=== PATIENT | female | born 1990 | race Caucasian/White ===

== ENCOUNTER 2020-01-22 12:33 | Outpatient (CLI) | payer OTHER, SELFPAY ==
[2020-01-22 13:43] LABS: Beta HCG Quantitative 6.81 mIU/ML
[2020-01-23] MEDS: RHO(D) IMMUNE GLOBULIN 300 MCG SYRINGE IM (08:53)
== END 2020-01-22 12:34 | disposition home or self-care (01) ==
LOC: ANHLAB 12:42
PROVIDERS: PCP Nurse Practitioner Family; Visit Provider Obstetrics & Gynecology Gynecology
DX: O26.851 Spotting complicating pregnancy, first trimester (principal); O26.21 Pregnancy care for patient with recurrent pregnancy loss, first trimester
CPT/HCPCS: 36415; 84702; 85461; 86880; 86902; 90384; 96372; J2790

== ENCOUNTER 2020-07-17 19:02 | Emergency (ER) | payer OTHER, SELFPAY ==
--- NOTE | ~2020-07-17 | US_ITS ---
EXAMINATION: US OB <=14 wk fetus w TV DATE: 07/17/2020 20:42 INDICATION: Vaginal bleeding with pelvic pain TECHNIQUE: Real-time transabdominal and transvaginal obstetric ultrasound. FINDINGS: No prior studies for comparison. The uterus measures 8.2 x 5.6 x 4.8 cm. There is an intrauterine gestational sac measuring 0.98 cm co rresponding to 5 week 4 day gestation. There is a yolk sac. No pole is identified. Right ovary measures 3.4 x 3.8 x 2.6 cm and contains corpus luteal cysts, largest measuring 2.8 cm. Left ovary no t visualized. IMPRESSION: 1.: Intrauterine gestational sac containing a yolk sac and no pole. Sac measurements correspond ing to a 5 week 4 day gestation (JORDAN 03/15/2021). No pole identified, likely due to early gesta tional age. Recommend follow-up with serial quantitative beta-hCG levels and ultrasound as clinically indicated. 2: Corpus luteal cysts of the right ovary, largest measuring 2.8 cm. Reviewed, dictated and finalized at location A. OGRAPH ENLARGER IMPRESSION: 1.: Intrauterine gestational sac containing a yolk sac and no pole. Sac m easurements corresponding to a 5 week 4 day gestation (JORDAN 03/15/2021). No feta l pole identified, likely due to early gestational age. Recommend follow-up wit h serial quantitative beta-hCG levels and ultrasound as clinically indicated. 2: Corpus luteal cysts of the right ovary, largest measuring 2.8 cm.
[2020-07-17 19:04] VITALS: BP 124/70; PULSE 76; RESP 20; TEMP 36.3; O2SAT 100
--- NOTE | 2020-07-17 19:24 | ED.FEMALEGU ---
HPI - Female Genitourinary General Chief complaint: Vaginal Bleeding Stated complaint: 5 weeks preg- bleeding Time Seen by Provider: 07/17/20 19:10 History of Present Illness HPI Narrative: Patient is a 29-year-old female who presents ER with vaginal bleeding. LMP 06/09/2020. Approximately 5 weeks gestation. Her OB is Dr. Mujica. She has not yet had a dating ultrasound. Patient is a EAB 1. She is reporting some mild lower pelvic cramping. She started having bright red spotting beginning this afternoon and that is increased in amount. No lightheadedness. Blood type is AB-. Related Data Home Medications Medication Instructions Recorded Confirmed certolizumab pegol [Cimzia] See Rx Instructions .ROUTE .COMPLEX 07/17/20 07/17/20 progesterone micronized 100 mg PO DAILY 07/17/20 07/17/20 Allergies Allergy/AdvReac Type Severity Reaction Status Date / Time No Known Allergies Allergy Verified 07/17/20 19:07 Review of Systems Review of Systems: All systems reviewed & are unremarkable except as noted in HPI and below Constitutional: Constitutional: Denies chills Comments: No fevers Gastrointestinal: Gastrointestinal: Denies abdominal pain, Reports nausea and Denies vomiting Genitourinary: Genitourinary: Reports abnormal vaginal bleeding, Denies hematuria, Denies nocturia, Denies dysuria and Denies vaginal discharge PMFSH Past Medical History Medical History (Updated 07/17/20 @ 21:48 by Guero Frazier MD) Healthy female adult Surgical History Surgical History (Updated 07/17/20 @ 19:26 by Guero Frazier MD) No history of previous surgery Social History Social History (Updated 07/17/20 @ 19:26 by Guero Frazier MD) Smoking status: Never smoker Gender identity (if verbalized by the patient): Female Exam Narrative: Exam Narrative: GENERAL: Well-appearing, well-nourished, and in no acute distress. HEAD: Normocephalic, atraumatic. CHEST: Clear to auscultation. No respiratory distress. HEART: Regular rate and rhythm. Normal peripheral pulses. ABDOMEN: Soft, nontender, nondistended. : Normal external genitalia. No bleeding or discharge within the vagina. Cervix closed nontender. EXTREMITIES: Normal range of motion. No edema. SKIN: Warm, dry, no rash. NEURO: Alert and oriented x3. Course Course Emergency Course: Informed of results. Received RhoGam. Follow-up with gynecology this week. Discussed case with Dr. Larkin. Vital Signs Vital signs: Vital Signs Temperature 97.3 F L 07/17/20 19:04 Pulse Rate 76 07/17/20 19:04 Respiratory Rate 20 07/17/20 19:04 Blood Pressure 124/70 07/17/20 19:04 Pulse Oximetry 100 07/17/20 19:04 Temperature 97.3 F L 07/17/20 19:04 Pulse Rate 76 07/17/20 19:04 Respiratory Rate 20 07/17/20 19:04 Blood Pressure 124/70 07/17/20 19:04 Pulse Oximetry 100 07/17/20 19:04 MDM - Female Genitourinary Lab Data Result diagrams: 07/17/20 19:25 Labs: Lab Results 07/17/20 07/17/20 07/17/20 Range/Units 19:25 19:25 19:25 WBC 10.1 H (4.5-10.0) K/mm3 RBC 4.45 (4.2-5.4) M/mm3 Hgb 13.3 (12.0-15.0) g/dL Hct 38.8 (37.0-47.0) % MCV 87.2 (80-100) fl MCH 29.9 (26-34) pg MCHC 34.3 (32-36) g/dl RDW 12.2 (11.5-14.5) % Plt Count 199 (150-375) k/mm3 MPV 10.2 (7.4-10.4) fl Immature Gran % (Auto) 0.2 (0-0.5) % Neut % (Auto) 47.1 (45.5-73.1) % Lymph % (Auto) 43.1 (18.3-44.2) % [place] % (Auto) 6.1 (2.6-8.5) % Eos % (Auto) 3.2 (0-4.4) % Baso % (Auto) 0.3 (0.2-1.2) % Lymph # (Auto) 4.36 H (0.9-3.2) K/mm3 [place] # (Auto) 0.6 (0.1-0.6) K/mm3 Eos # (Auto) 0.3 (0-0.3) K/mm3 Baso # (Auto) 0.0 (0.0-0.1) K/mm3 Abs Immat Gran (auto) 0.02 (0.00-0.031) K/mm3 Absolute Neuts (auto) 4.8 (1.3-6.7) K/mm3 Absolute Nucleated RBC 0.0 (0.0-0.012) K/mm3 Nucleated RBC % 0.0 (0.0-0.2) % Beta HCG, Quant 7739.20 mIU/ML
[2020-07-17 19:34] LABS: Basophils Percent Auto 0.3 % (0.2-1.2); Eosinophils Absolute Auto 0.3 K/mm3 (0-0.3); Eosinophils Percent Auto 3.2 % (0-4.4); Hematocrit 38.8 % (37.0-47.0); Hemoglobin 13.3 g/dL (12.0-15.0); Immature Granulocyte Absolute 0.02 K/mm3 (0.00-0.031); Immature Granulocyte Percent A 0.2 % (0-0.5); Lymphocytes Absolute Auto 4.36 K/mm3 (0.9-3.2); Lymphocytes Percent Auto 43.1 % (18.3-44.2); Mean Corpuscular HGB Conc 34.3 g/dl (32-36); Mean Corpuscular Hemoglobin 29.9 pg (26-34); Mean Corpuscular Volume 87.2 fl (80-100); Mean Platelet Volume 10.2 fl (7.4-10.4); Monocytes Absolute Auto 0.6 K/mm3 (0.1-0.6); Monocytes Percent Auto 6.1 % (2.6-8.5); Neutrophils Absolute Auto 4.8 K/mm3 (1.3-6.7); Neutrophils Percent Auto 47.1 % (45.5-73.1); Platelet Count Result 199 k/mm3 (150-375); Red Blood Count 4.45 M/mm3 (4.2-5.4); Red Cell Distribution Width 12.2 % (11.5-14.5); White Blood Count 10.1 K/mm3 (4.5-10.0)
[2020-07-17] MEDS: RHO(D) IMMUNE GLOBULIN 300 MCG SYRINGE IM (21:20)
[2020-07-17 22:10] VITALS: BP 107/74; PULSE 73; RESP 18; O2SAT 98
== END 2020-07-17 22:12 | disposition home or self-care (01) ==
PROVIDERS: Emergency Provider Emergency Medicine
DX: O20.0 Threatened abortion (principal); O34.81 Maternal care for other abnormalities of pelvic organs, first trimester; N83.11 Corpus luteum cyst of right ovary; Z3A.01 Less than 8 weeks gestation of pregnancy
CPT/HCPCS: 36415; 76801; 76817; 84702; 85025; 85461; 90384; 96372; 99284; J2790

== ENCOUNTER 2020-07-19 17:28 | Outpatient (CLI) | payer OTHER, SELFPAY | END 2020-07-19 17:29 | disposition home or self-care (01) | LOC: ANHLAB 17:31 | PROVIDERS: Visit Provider Obstetrics & Gynecology Gynecology | DX: O20.0 Threatened abortion (principal); Z3A.00 Weeks of gestation of pregnancy not specified | CPT/HCPCS: 36415; 84702 ==

== ENCOUNTER 2020-09-07 16:43 | Outpatient (CLI) | payer OTHER, SELFPAY ==
--- NOTE | ~2020-09-07 | US_ITS ---
EXAMINATION: US OB <= 14 weeks fetus DATE: 09/07/2020 17:26 INDICATION: Spotting in . First trimester. TECHNIQUE: Real-time transabdominal pelvic ultrasound was performed. COMPARISON: Ultrasound 07/17/2020 FINDINGS: The uterus measures 13.3 x 10.1 x 9.4 cm. There is an intrauterine gestational sac. The crown rump length measures 6.9 cm, which correlates with an estimated gestational age of 13 weeks and 1 day (s) (+/-) 1 week(s) and 1 day(s). heart motion is identified measuring 152 beats per minute (bp m) by M-mode Doppler. The placenta is posterior. The right ovary measures 3.2 x 2.6 x 2.4 cm. The lef t ovary is not visualized. There is no free fluid in the pelvis. IMPRESSION: 1. Single living intrauterine gestation with estimated date of delivery of 03/14/2021. Reviewed, dictated and finalized at location A.
[2020-09-07] MEDS: RHO(D) IMMUNE GLOBULIN 300 MCG/2 ML SYRINGE IM (21:06)
== END 2020-09-07 16:44 | disposition home or self-care (01) ==
PROVIDERS: PCP Nurse Practitioner Family; Visit Provider Obstetrics & Gynecology Gynecology
DX: O36.0111 Maternal care for anti-D [Rh] antibodies, first trimester, fetus 1 (principal); O26.21 Pregnancy care for patient with recurrent pregnancy loss, first trimester; Z3A.13 13 weeks gestation of pregnancy
CPT/HCPCS: 36415; 76801; 85461; 86850; 86880; 86900; 86901; 90384; 96372; J2790

== ENCOUNTER 2021-01-09 13:45 | Observation (INO) | payer OTHER, SELFPAY ==
--- NOTE | 2021-01-09 13:45 | OBADM ---
This patient, Clary Ramirez, admitted to the OB room OB Post 116 for observation. Patient/family oriented to hospital policies and general routines including ID bracelet, bed and alarms, visiting hours, pain management, procedures, bathroom and other care routines, personal items, smoking policy, room service/diet, and visiting hours. Patient/Family are encouraged to report perceived risks to care and to ask questions if they do not understand what they are told or what they should do.
[2021-01-09 14:06] VITALS: BP 107/67; PULSE 85; RESP 20; TEMP 36.6
[2021-01-09 15:00] VITALS: BMI 28.3
--- NOTE | 2021-01-15 07:25 | PM.OBTRLD ---
OB - Triage/Final Diagnosis Visit Information Reason for evaluation: other (spotting) Comments/Additional reasons for admission: I have assessed the risk for this patient, Clary Ramirez, and determined that she would benefit from observation care.
== END 2021-01-09 15:31 | disposition home or self-care (01) ==
PROVIDERS: Admitting Provider Obstetrics & Gynecology Gynecology; PCP Nurse Practitioner Family; Visit Provider Obstetrics & Gynecology Gynecology
DX: O26.853 Spotting complicating pregnancy, third trimester (principal); Z3A.30 30 weeks gestation of pregnancy; Z37.0 Single live birth
CPT/HCPCS: 84112; G0378; G0379

== ENCOUNTER 2021-02-22 07:40 | Outpatient (RCR) | payer OTHER, SELFPAY ==
[2020-11-30] MEDS: RHO(D) IMMUNE GLOBULIN 300 MCG/2 ML SYRINGE IM (08:01)
[2021-02-23] MEDS: RHO(D) IMMUNE GLOBULIN 300 MCG/2 ML SYRINGE IM (09:57)
== END 2021-02-27 23:59 | disposition home or self-care (01) ==
LOC: ANHLAB 07:40
PROVIDERS: PCP Nurse Practitioner Family; Visit Provider Obstetrics & Gynecology Gynecology
DX: Z29.13 Encounter for prophylactic Rho(D) immune globulin (principal); O36.0130 Maternal care for anti-D [Rh] antibodies, third trimester, not applicable or unspecified; Z3A.00 Weeks of gestation of pregnancy not specified
CPT/HCPCS: 36415; 85461; 90384; 96372; J2790

== ENCOUNTER 2021-02-26 11:16 | Observation (INO) | payer OTHER, SELFPAY ==
--- NOTE | 2021-02-26 11:16 | OBADM ---
This patient, Clary Ramirez, admitted to the OB room OB Post 117 for observation. Patient/family oriented to hospital policies and general routines including ID bracelet, bed and alarms, visiting hours, pain management, procedures, bathroom and other care routines, personal items, smoking policy, room service/diet, and visiting hours. Patient/Family are encouraged to report perceived risks to care and to ask questions if they do not understand what they are told or what they should do.
[2021-02-26 11:20] VITALS: BMI 30.4
[2021-02-26 11:35] VITALS: BP 119/71; PULSE 71
[2021-02-26 11:45] VITALS: BP 116/86; PULSE 86
[2021-02-26 11:58] LABS: Add Urine Microscopic? YES; Appearance Urine Cloudy (Clear); Bacteria Urine Trace /hpf; Bilirubin Urine Negative (Negative); Blood Urine 1+ (Negative); Color Urine Yellow (Yellow); Glucose Urine UA Negative (Negative); Ketones Urine Negative (Negative); Leukocyte Esterase Ur 3+ LEU/UL (NEGATIVE); Mucus Urine Rare /lpf; Nitrate Urine Negative (Negative); Protein Urine Negative (Negative); RBC Urine 51-75 /hpf (0-2); Specific Grav Ur 1.012 (1.001-1.035); Squamous Epithelial Cell Urine Many /hpf (Few); Urobilinogen Urine Negative mg/dL (<2.0); WBC Urine 21-30 /hpf (0-3)
--- NOTE | 2021-03-06 08:49 | PM.OBTRLD ---
OB - Triage/Final Diagnosis Visit Information Reason for evaluation: threatened labor and other ( pelvic pain) Comments/Additional reasons for admission: I have assessed the risk for this patient, Clary Ramirez, and determined that she would benefit from observation care. Evaluation Laboratory results: Laboratory Tests 02/26/21 11:43 Urine Color Yellow Urine Appearance Cloudy H Urine pH 6.0 Ur Specific [place] 1.012 Urine Protein Negative Urine Glucose (UA) Negative Urine Ketones Negative Ur Blood (Man) 1+ H Urine Nitrate Negative Urine Bilirubin Negative Urine Urobilinogen Negative Ur Leukocyte Esterase 3+ H Urine RBC 51-75 H Urine WBC 21-30 H Ur Squamous Epith Cells Many H Urine Bacteria Trace Urine Mucus Rare
== END 2021-02-26 12:46 | disposition home or self-care (01) ==
PROVIDERS: Admitting Provider Obstetrics & Gynecology Gynecology; PCP Nurse Practitioner Family; Visit Provider Obstetrics & Gynecology Gynecology
DX: O26.893 Other specified pregnancy related conditions, third trimester (principal); R10.2 Pelvic and perineal pain; O47.1 False labor at or after 37 completed weeks of gestation; Z3A.37 37 weeks gestation of pregnancy
CPT/HCPCS: 81001; 87086; G0378; G0379

== ENCOUNTER 2021-03-13 07:00 | Inpatient (IN) | payer OTHER, SELFPAY ==
[2021-03-13] VITALS (118 sets, daily range): BP systolic 85–146; BP diastolic 46–87; PULSE 56–116; RESP 18; TEMP 36.3–37; O2SAT 94–100; BMI 30.4
[2021-03-13] MEDS: OXYTOCIN 30 UNITS/NS 500 ML 30 UNITS/500 ML BAG 6 UNITS IV CONT (07:40)
[2021-03-13 07:42] LABS: Basophils Absolute Auto 0.1 K/mm3 (0.0-0.1); Basophils Percent Auto 0.6 % (0.2-1.2); Eosinophils Absolute Auto 0.2 K/mm3 (0-0.3); Eosinophils Percent Auto 2.1 % (0-4.4); Hematocrit 36.7 % (37.0-47.0); Hemoglobin 12.5 g/dL (12.0-15.0); Immature Granulocyte Absolute 0.14 K/mm3 (0.00-0.031); Immature Granulocyte Percent A 1.4 % (0-0.5); Lymphocytes Absolute Auto 2.67 K/mm3 (0.9-3.2); Lymphocytes Percent Auto 26.1 % (18.3-44.2); Mean Corpuscular HGB Conc 34.1 g/dl (32-36); Mean Corpuscular Hemoglobin 29.5 pg (26-34); Mean Corpuscular Volume 86.6 fl (80-100); Mean Platelet Volume 11.5 fl (7.4-10.4); Monocytes Absolute Auto 0.8 K/mm3 (0.1-0.6); Monocytes Percent Auto 7.4 % (2.6-8.5); Neutrophils Absolute Auto 6.4 K/mm3 (1.3-6.7); Neutrophils Percent Auto 62.4 % (45.5-73.1); Platelet Count Result 195 k/mm3 (150-375); Red Blood Count 4.24 M/mm3 (4.2-5.4); Red Cell Distribution Width 12.6 % (11.5-14.5); White Blood Count 10.2 K/mm3 (4.5-10.0)
[2021-03-13] MEDS: LACTATED RINGERS 1,000 ML 125 ML IV CONT ×2 (07:42→10:57)
--- NOTE | 2021-03-13 08:19 | LDADM ---
This patient, Clary Ramirez, was admitted to Labor/Delivery/Recovery 104 on 03/13/21 at 07:00. Plans for labor, pain management and were discussed with patient. Patient/family oriented to hospital policies and general routines including ID bracelet, bed and alarms, visiting hours, pain management, procedures, bathroom and other care routines, personal items, smoking policy, room service/diet and guest tray routines, security routines, and visiting hours. Patient/Family are encouraged to report perceived risks to care and to ask questions if they do not understand what they are told or what they should do. See OBIX for further documentation.
--- NOTE | 2021-03-13 09:08 | WPDOBADMIT ---
Obstetrics - Admit Note Admission Note: record reviewed. No pertinent additions to the history and/or any subsequent changes in the physical findings that are not consistent with the expected course of the were found. Additions to the history and/or subsequent changes in the physical findings follow. None.Here for MIL. Cervix 2-3/70/-2 AROM with clear fluid. FHTs reactive
--- NOTE | 2021-03-13 10:16 | WPDANESEPP ---
Anes - Eval Pre Procedure Procedure: labor pain management Date/Time: 03/13/21 10:16 Surgeon: Guanako Preop Diagnosis: pain during labor Pre Op Diagnosis: Induction of Labor Patient Data Age: 30 Gender: F Height: 1.65 m Weight: 83 kg Last Vital Signs Temp 98 F 03/13/21 09:00 Pulse 75 03/13/21 10:16 BP 126/75 03/13/21 10:16 Allergies Allergy/AdvReac Type Severity Reaction Status Date / Time No Known Allergies Allergy Verified 07/17/20 19:07 Home Medications Medication Instructions Recorded Confirmed Type PNV cmb#95-ferrous fumarate-FA 1 tablet PO DAILY 01/09/21 02/16/21 History [] aspirin 81 mg PO DAILY 01/09/21 02/16/21 History cholecalciferol (vitamin D3) 1,000 unit PO DAILY 01/09/21 02/16/21 History Laboratory Tests 03/13/21 03/13/21 03/13/21 07:30 07:31 07:31 WBC 10.2 K/mm3 H K/mm3 (4.5-10.0) RBC 4.24 M/mm3 M/mm3 (4.2-5.4) Hgb 12.5 g/dL g/dL (12.0-15.0) Hct 36.7 % L % (37.0-47.0) MCV 86.6 fl fl (80-100) MCH 29.5 pg pg (26-34) MCHC 34.1 g/dl g/dl (32-36) RDW 12.6 % % (11.5-14.5) Plt Count 195 k/mm3 k/mm3 (150-375) MPV 11.5 fl H fl (7.4-10.4) Immature Gran % (Auto) 1.4 % H % (0-0.5) Neut % (Auto) 62.4 % % (45.5-73.1) Lymph % (Auto) 26.1 % % (18.3-44.2) [place] % (Auto) 7.4 % % (2.6-8.5) Eos % (Auto) 2.1 % % (0-4.4) Baso % (Auto) 0.6 % % (0.2-1.2) Lymph # (Auto) 2.67 K/mm3 K/mm3 (0.9-3.2) [place] # (Auto) 0.8 K/mm3 H K/mm3 (0.1-0.6) Eos # (Auto) 0.2 K/mm3 K/mm3 (0-0.3) Baso # (Auto) 0.1 K/mm3 K/mm3 (0.0-0.1) Abs Immat Gran (auto) 0.14 K/mm3 H K/mm3 (0.00-0.031) Absolute Neuts (auto) 6.4 K/mm3 K/mm3 (1.3-6.7) Absolute Nucleated RBC 0.0 K/mm3 K/mm3 (0.0-0.012) Nucleated RBC % 0.0 % % (0.0-0.2) RPR Pending Blood Type AB Negative Antibody Screen Positive Antibody Identification Pending Antigen Identification Pending ADAN, IgG Interpret Pending ADAN, Poly Interpret Pending ADAN, Complement Interp Pending Patient hx anesthesia problems: none Family hx anesthesia problems: none Results Review: All pre-operative results and documents have been reviewed as part of the pre-operative evaluation. [facility] Past Medical History Medical History (Updated 03/13/21 @ 10:15 by Heidi Gaffney CRNA) Healthy female adult Surgical History Surgical History (Updated 07/17/20 @ 19:26 by Guero Frazier MD) No history of previous surgery Family History Family History (Updated 02/16/21 @ 14:43 by Beth Childress RN) Other No pertinent family history Social History Social History (Updated 07/17/20 @ 19:26 by Guero Frazier MD) Smoking status: Never smoker Substance use: never Gender identity (if verbalized by the patient): Female Spiritual care concerns: No Exam Day of Procedure 03/13/21 10:16 Patient weight: normal Neurological: alert and oriented
[2021-03-13 10:41] LABS: Rapid Plasma Reagin Non-Reactive (NonReactive)
[2021-03-13] MEDS: fentaNYL CITRATE INJ (*CRX) 100 MCG/2 ML VIAL 50 MCG IV PUSH (11:08)
[2021-03-13] MEDS: LIDOCAINE HCL 1% PF 30 ML VIAL (19:30)
[2021-03-13] MEDS: OXYTOCIN 30 UNITS/NS 500 ML 30 UNITS/500 ML BAG 125 UNITS IV CONT (19:45)
--- NOTE | 2021-03-13 19:46 | PM.OBPRVD ---
OB - Delivery Note Procedure Delivery date: 03/13/21 Procedure: events: Labor Induction Intrapartal events: None Induction method: AROM and per pitocin protocol Delivery monitor: external FHT and external uterine Route of delivery: Laceration Description: Perineal - 2nd Degree and Labial (perineal LML extended to L labial ) Delivery repair: vicryl (3-0 vicryl) Specimen: No Quantitative Blood Loss (ml): 325 Anesthesia type: Local Disposition: floor Baby Date of : 03/13/21 Weeks of gestation at delivery: 39 gender: Male Weight (pounds): 8 Weight (ounces): 12 presentation: vertex position: Right Occiput Anterior Placenta delivery description: Spontaneous cord vessel description: Nuchal Cord score one minute: 9 score five minutes: 9
--- NOTE | 2021-03-13 19:47 | PM.OBDSVD ---
DS: Admitting Diagnosis Discharge Date 03/15/21 Admitting Diagnosis MIL 39 4/7 wks DS: Discharge Diagnosis Discharge Diagnosis (1) (normal spontaneous vaginal delivery): Code(s): O80 - Encounter for full-term uncomplicated delivery Status: Acute OB - DS: Summary OB Procedures : Ultrasound OB Procedures Intrapartum: Spontaneous Vag Delivery OB Procedures: : None Peripartum Data Infant Delivery Method: Natural Vaginal Laceration Description: Perineal - 2nd Degree and Labial (L) complications: none Status at Discharge Functional status at discharge: independent ambulation Overall status at discharge: patient is progressing back to baseline Time Spent with Patient Time attestation: Total time spent providing and/or coordinating discharge services: DS: Data Data Completed and Pending Labs on day of discharge: Labs from last 24 hours 03/13/21 03/13/21 03/13/21 07:31 07:31 07:30 WBC 10.2 H RBC 4.24 Hgb 12.5 Hct 36.7 L MCV 86.6 MCH 29.5 MCHC 34.1 RDW 12.6 Plt Count 195 MPV 11.5 H Immature Gran % (Auto) 1.4 H Neut % (Auto) 62.4 Lymph % (Auto) 26.1 [place] % (Auto) 7.4 Eos % (Auto) 2.1 Baso % (Auto) 0.6 Lymph # (Auto) 2.67 [place] # (Auto) 0.8 H Eos # (Auto) 0.2 Baso # (Auto) 0.1 Abs Immat Gran (auto) 0.14 H Absolute Neuts (auto) 6.4 Absolute Nucleated RBC 0.0 Nucleated RBC % 0.0 RPR Non-reactive Blood Type AB Negative Antibody Screen Positive Antibody Identification Passive Due to RH Imm Glob Antigen Identification Not Reportable ADAN, IgG Interpret Not Performed ADAN, Poly Interpret Negative ADAN, Complement Interp Not Performed Discharge Plan Discharge Attending physician on discharge: Caitlin Mujica Discharging Clinician: Eladio Larkin Anticipated Discharge Date/Time: 03/15/21 19:48 Patient Disposition: Home, Self-Care Activity: may shower and pelvic rest Diet: regular Discharge Instructions: Education: Mom and Baby Guide Given to: Mother Follow-Up: Call your delivering provider's office for an appointment to be seen in: 6 Weeks Mom and baby should come to the [facility] for the follow-up appointment. Appointment Date/Time: March 17, 2021 at 11:00 am What to expect at your follow-up visit: Blood Pressure Check, Physical Assessment Call [phone] if you are unable to keep your appointment time. BREAST CARE: * Wear a snug supportive bra. * For engorgement discomfort: Breast Feeding: * Apply warm moist washcloths * Express milk as needed to relieve engorgement * Wear loose clothing * For sore nipples: * Identify correct latch-on * Apply warm moist washcloths before and after nursing * Air dry nipples after nursing * May apply Lansinoh cream to nipples EPISIOTOMY/PERINEAL CARE: * Until bleeding stops, use your tiffany bottle after urinating * Change your pad frequently throughout the day * You may take sitz baths several times a day (fill your bathtub with warm water and soak for 20 minutes.) Do NOT bathe in the water * No tub baths until seen by your physician - You may shower ACTIVITY: * Rest as much as possible. * Do not exercise or lift anything heavier than your baby (such as laundry or other children.) * Avoid stairs or driving as much as possible. * Do not put anything into the vagina. No douching, tampons, or sexual activity until seen by physician. NOTIFY PHYSICIAN IF YOU HAVE ANY QUESTIONS OR IF ANY OF THE FOLLOWING SYMPTOMS OCCUR: * If your episiotomy or incision becomes red, swollen, or more painful than what you have experienced in the hospital. * If your vaginal bleeding becomes foul smelling. * If your vaginal bleeding becomes more heavy than a period or if your bleeding changes from pink to bright red. However, you may pas
[2021-03-13] MEDS: IBUPROFEN 600 MG TABLET PO (20:25)
[2021-03-13] MEDS: BENZOCAINE 20% AER SPR (*SP) 56 GM CAN 1 SPRAY TOPICAL (22:06)
[2021-03-13] MEDS: WITCH HAZEL 40 PADS 1 PAD TOPICAL (22:06)
[2021-03-14] MEDS: ACETAMINOPHEN 325 MG TABLET 650 MG PO ×4 (03:02→23:15)
[2021-03-14] MEDS: IBUPROFEN 600 MG TABLET PO ×4 (03:03→23:15)
[2021-03-14 04:00] VITALS: BP 119/61; PULSE 91; RESP 20; TEMP 36.8; O2SAT 98
[2021-03-14 05:14] LABS: Hematocrit 28.1 % (37.0-47.0); Hemoglobin 9.4 g/dL (12.0-15.0)
--- NOTE | 2021-03-14 07:46 | PM.OBPNVD ---
OB - PN: Subj Subjective Date/time seen: 03/14/21 07:46 Patient comments: no complaints and pain well controlled baby status: doing well OB - PN: Obj Data Labs CBC & Chem 7: 03/14/21 04:12 Labs: Laboratory Results - last 24 hr 03/13/21 03/13/21 03/14/21 07:30 07:31 04:12 Hgb 9.4 L D Hct 28.1 L RPR Non-reactive Blood Type AB Negative Antibody Screen Positive Antibody Identification Passive Due to RH Imm Glob Antigen Identification Not Reportable ADAN, IgG Interpret Not Performed ADAN, Poly Interpret Negative ADAN, Complement Interp Not Performed OB - PN A/P Plan day: 1 Plan: routine care Time Spent With Patient Time: Total time spent is greater than 50% in coordination of care (as documented) at patient's floor/unit and/or counseling patient: Exam : Bimanual exam- vagina & uterus: other (Uterus firm, nt @U)
[2021-03-14 08:00] VITALS: BP 105/55; PULSE 84; RESP 16; TEMP 36.8; O2SAT 99
[2021-03-14] MEDS: MULTIVIT/MIN/PREN/FOL AC/IRON TABLET 1 TAB PO (09:06)
[2021-03-14] MEDS: DOCUSATE SODIUM 100 MG CAPSULE PO ×2 (09:07→16:16)
[2021-03-14] MEDS: POLYSACCHARIDE IRON COMPLEX 150 MG CAPSULE PO ×2 (09:07→16:15)
--- NOTE | 2021-03-14 10:37 | WPDANLDPN2 ---
Anes-Prog Note L&D Date/Time: 03/14/21 10:37 Comfortable throughout: labor and delivery Neuraxial method: epidural Epidural/Spinal procedure site: clean & non-tender Neuro status: Neuro function grossly intact. Cardiovascular status: normal Respiratory status: normal Airway patency: baseline Mental status: baseline Post-Op hydration status: normal Vital Signs: Last Vital Signs Temp 36.8 C 03/14/21 08:00 Pulse 84 03/14/21 08:00 Resp 16 03/14/21 08:00 BP 105/55 L 03/14/21 08:00 Pulse Ox 99 03/14/21 08:00 Pain score (VAS): 3 I/O: Intake & Output 03/13/21 03/14/21 03/14/21 23:59 07:59 15:59 Intake Total 500 Output Total 73 Balance -73 500 Post-procedural complaints: none Patient feedback: Patient satisfied with anesthetic care.
[2021-03-14] MEDS: RHO(D) IMMUNE GLOBULIN 300 MCG/2 ML SYRINGE IM (10:54)
--- NOTE | 2021-03-14 10:56 | PC.NURSE ---
Rhogam given by student and instructor unable to document
[2021-03-14 11:44] VITALS: BP 105/66; PULSE 73; RESP 16; TEMP 36.6; O2SAT 98
--- NOTE | 2021-03-14 11:48 | PC.NURSE ---
Consulted with patient, reviewed feeding cues, frequencies, duration of feedings, feeding elimination flow sheet, and signs of adequate intake. Demonstrated stimulation techniques to wake for feeding. Assisted with to breast. Reviewed positioning/alignment, holding breast and asymmetrical latch on. was able to latch correctly after a few attempts. sucking on tongue and worked on getting infant to put tongue down at breast. Educated parents on effective latch and effective sucking at breast. Infant nursed eagerly, with steady draws and frequent swallowing noted. Reviewed signs of a correct latch, effective nursing and suck swallow ratio. Infant was able to maintain latch without discomfort to mother. Nipple care reviewed. Instructed mother to call out for RN assistance if she is unable to latch infant for feeding or she has discomfort with nursing. Instructed feeding should be initiated three hours from start of last feeding or if feeding cues are noted before. Mother voiced understanding of information shared.
[2021-03-14 15:30] VITALS: BP 115/65; PULSE 87; RESP 16; TEMP 36.3; O2SAT 87
[2021-03-14 23:24] VITALS: BP 110/66; PULSE 84; RESP 16; TEMP 36.8
[2021-03-15] MEDS: IBUPROFEN 600 MG TABLET PO ×2 (05:22→14:42)
[2021-03-15] MEDS: ACETAMINOPHEN 325 MG TABLET 650 MG PO ×2 (05:22→14:43)
--- NOTE | 2021-03-15 07:55 | PM.OBPNVD ---
OB - PN: Subj Subjective Date/time seen: 03/15/21 07:55 doing well today OB - PN: Obj Data Labs CBC & Chem 7: 03/14/21 04:12 Labs: Laboratory Results - last 24 hr 03/14/21 04:12 Blood Type AB Negative Antibody Screen Positive Antibody Identification Passive Due to RH Imm Glob Antigen Identification Cancelled ADAN, IgG Interpret Cancelled ADAN, Poly Interpret Cancelled ADAN, Complement Interp Cancelled Screen Negative Baby's Blood Type A pos Baby's ADAN Positive Doses of RhIg Required 1 OB - PN A/P Assessment and Plan (1) (normal spontaneous vaginal delivery): Code(s): O80 - Encounter for full-term uncomplicated delivery Status: Acute Assessment and Plan: d/c home Time Spent With Patient Time: Total time spent is greater than 50% in coordination of care (as documented) at patient's floor/unit and/or counseling patient: Exam Narrative: ff below umbilicus
[2021-03-15 08:15] VITALS: BP 97/58; PULSE 65; RESP 18; TEMP 36.6; O2SAT 100
[2021-03-15] MEDS: DOCUSATE SODIUM 100 MG CAPSULE PO ×2 (08:30→14:42)
[2021-03-15] MEDS: POLYSACCHARIDE IRON COMPLEX 150 MG CAPSULE PO ×2 (08:30→14:44)
[2021-03-15] MEDS: MULTIVIT/MIN/PREN/FOL AC/IRON TABLET 1 TAB PO (08:30)
[2021-03-15] MEDS: WITCH HAZEL 40 PADS 1 PAD TOPICAL (08:31)
[2021-03-15] MEDS: BENZOCAINE 20% AER SPR (*SP) 56 GM CAN 1 SPRAY TOPICAL (08:31)
--- NOTE | 2021-03-15 12:34 | PC.NURSE ---
Addendum entered by Paola Ryan RN 03/15/21 15:11: This note was entered and performed by Mayo Ryan RN, CLC not Radha Reed RN. Computer login error. Original Note: Consulted with patient, reviewed infant feeding cues, frequencies, duration of feedings, feeding elimination flow sheet, and signs of adequate intake. Demonstrated stimulation techniques to wake for feeding. Reviewed positioning/alignment, holding breast and asymmetrical latch on. Infant was able to latch correctly using the cross cradle position on her right breast. Mother latched infant independently and was able to correct an initial shallow latch. Infant nursed eagerly, with steady draws and frequent swallowing noted. Reviewed signs of a correct latch, effective nursing and suck swallow ratio. Infant was able to maintain latch without discomfort to mother. Nipple care reviewed. Pt is currently using lanolin, hydrogels, and given shells to place in bra to prevent friction. Pt has what appears to be a milk bleb to tip of right nipple. Mother states no pain at that site. Instructed mother to call out for RN assistance if she is unable to latch infant for feeding or she has discomfort with nursing. Instructed feeding should be initiated three hours from start of last feeding or if feeding cues are noted before. Mother voiced understanding of information shared. Educated regarding resources available after dc and mom/baby care guide. Mother appears confident in her ability to continue with at home. FOB very supportive at bedside.
--- NOTE | 2021-03-15 14:55 | PC.NURSE ---
Called to assist with latch. showing no feeding cues at this time. Attempted to awaken infant with no success. Infant placed skin to skin and will attempt again with cues.
--- NOTE | 2021-03-15 15:00 | PC.NURSE ---
Patient viewed the discharge video Mother & Baby Care, The First Two Weeks . Patient was given the opportunity and encouraged to ask questions. Patient verbalized understanding of information shared and has been given the mother/baby guide for home reference.
--- NOTE | 2021-03-15 15:04 | PC.NURSE ---
0954 Worked with mom and baby for baby's feeding at this time; mother reports latch on issues and sore nipples. Baby awake and eager; Mother taught cross-cradle position, alignment and use of c-hold with nose to nipple latch on technique. baby able to latch, to mother's R side, with apparent deep latch, maintain latch and demonstrated rhythmic sucking and swallowing. Mother denied nipple pain with this feeding. Mother's nipple round when came off breast; small bleb noted but nipple non-tender. Mother reports more nipple pain on her L side, and was encouraged to call for nurse to come to be present for feeding on that side. Reviewed frequency and duration of feedings, how to assess for deep latch, nipple care with her own breast milk, and air drying, hydrogels, and also use of warm tea bags. Breast feeding pages flagged in pt's mother-baby guide for home reference, including LC contact information. Both parents attentive and voiced understanding of information shared.
--- NOTE | 2021-03-15 16:15 | PC.NURSE ---
PT received discharge instructions per protocol and verbalized understanding of such care.
--- NOTE | 2021-03-15 16:15 | PC.NURSE ---
PT introductions made and plan of care discussed per post , pain management, breast feeding, daily care activities and pending discharge to home. PT received such instructions per one to one discussion, mom baby care guide, and demonstration. Pt and spouse both recipients of such instructions and no barriers to learning identified. Pt verbalized understanding of such care,
--- NOTE | 2021-03-15 16:22 | PC.NURSE ---
Called to assist mother with latch. with feeding cues present and attempted to place in football hold on left breast. Mother states this nipple is more sore than the right side. Encouraged to use least sore side first when feeding but for learning purposes and latch assessment, left side used first for this feeding. Mother with good technique and positioned infant appropriately in football position however no sustainable latch was achieved after multiple attempts. Infant then placed in cross cradle position and mother was independently able to get infant latched. Initially latch appeared shallow. Mother was able to relatch and manually pull 's bottom lip out to achieve more comfort with a deeper latch. Mother is able to express colostrum and states she is starting feel changes in her breasts. Education provided regarding milk transition, engorgement, and s/s mastitis. Parents plan for d/c and appear confident in their ability to continue with at home. References provided about further outpatient support after d/c and mother/baby guide discussed. Parents verbalized understanding of education provided.
--- NOTE | 2021-03-15 17:15 | PC.NURSE ---
PT discharged to home ambulatory accompanied by spouse and and taken to waiting car. Follow up appts confirmed
[2021-03-17 11:48] VITALS: BP 128/67; PULSE 82; RESP 20; TEMP 36.9; O2SAT 100
== END 2021-03-15 17:15 | disposition home or self-care (01) | DRG 806 ==
LOC: ANHLDR 03-16 10:32 → ANHOB2 03-16 10:32
PROVIDERS: Admitting Provider Obstetrics & Gynecology Gynecology; PCP Nurse Practitioner Family; Visit Provider Obstetrics & Gynecology
DX: O99.284 Endocrine, nutritional and metabolic diseases complicating childbirth (principal); E72.12 Methylenetetrahydrofolate reductase deficiency; Z37.0 Single live birth; Z3A.39 39 weeks gestation of pregnancy; O99.72 Diseases of the skin and subcutaneous tissue complicating childbirth; O70.1 Second degree perineal laceration during delivery; L40.9 Psoriasis, unspecified; O69.81X0 Labor and delivery complicated by cord around neck, without compression, not applicable or unspecified
CPT/HCPCS: 36415; 85014; 85018; 85025; 85461; 86592; 86850; 86880; 86900; 86901; 86902; 90384; A9270; J2590; J2790; J2795; J3010; J7120

== ENCOUNTER 2022-01-29 12:27 | Outpatient (CLI) | payer OTHER, SELFPAY ==
[2022-01-30] MEDS: RHO(D) IMMUNE GLOBULIN 300 MCG/2 ML SYRINGE IM (08:20)
== END 2022-01-29 12:28 | disposition home or self-care (01) ==
PROVIDERS: PCP Nurse Practitioner Family; Visit Provider Obstetrics & Gynecology Gynecology
DX: O26.852 Spotting complicating pregnancy, second trimester (principal); Z3A.00 Weeks of gestation of pregnancy not specified
CPT/HCPCS: 36415; 85461; 90384; 96372; J2790

== ENCOUNTER 2022-02-14 10:38 | Outpatient (CLI) | payer OTHER, SELFPAY ==
--- NOTE | ~2022-02-14 | US_ITS ---
EXAMINATION: US OB /maternal detail DATE: 02/14/2022 11:37 INDICATION: Second trimester anatomic survey TECHNIQUE: Real-time ultrasound of the pelvis was performed. COMPARISON: None. FINDINGS: There is a single living fetus in vertex presentation. The placenta is anterior and 3 cm from the int ernal cervical os. The cervical length is 4.1 cm. heart rate is 153 beats per minute (bpm). Fe marina cardiac activity and movement are noted. The amniotic fluid index is subjectively normal. The following anatomy was identified as normal: 4 chamber heart 3 vessel cord cord insertion kidneys urinary bladder stomach spine diaphragm ventricles cisterna magna cerebellum The following biometric data were obtained: Biparietal diameter (BPD): 4.4 cm; head circumference (HC): 16.9 cm; abdominal circumference (AC): 14 .4 cm; femur length (FL): 3.3 cm. These measurements are concordant. Estimated weight is 319 g +/- 47 g, which correlates with the 47th percentile when 07/05/2022 is used as estimated date of delivery. As single measurements, these parameters are each equal to the following estimated gestational ages w ith ranges of +/- 2 standard deviations: BPD: 19 weeks 2 days +/- 1 weeks 5 days. HC: 19 weeks 4 days +/- 1 weeks 3 days. AC: 19 weeks 5 days +/- 2 weeks 0 days. FL: 20 weeks 1 days +/- 1 weeks 6 days. estimated gestational age based solely on measurements from this exam is 19 weeks 5 days +/- 1 weeks 3 days. IMPRESSION: 1. Single living fetus in vertex presentation. 2. Estimated weight is 319 g +/- 47 g, which correlates with the 47th percentile when 07/05/2022 is used as estimated date of delivery. Reviewed, dictated and finalized at location A. IMPRESSION: 1. Single living fetus in vertex presentation. 2. Estimated weight is 319 g +/- 47 g, which correlates with the 47th per centile when 07/05/2022 is used as estimated date of delivery.
== END 2022-02-14 10:39 | disposition home or self-care (01) ==
PROVIDERS: PCP Nurse Practitioner Family; Visit Provider Advanced Practice Midwife
DX: Z36.9 Encounter for antenatal screening, unspecified (principal)
CPT/HCPCS: 76805

== ENCOUNTER 2022-04-11 10:10 | Outpatient (RCR) | payer OTHER, SELFPAY ==
[2022-04-12] MEDS: RHO(D) IMMUNE GLOBULIN 300 MCG/2 ML SYRINGE IM (09:53)
== END 2022-07-10 23:59 | disposition home or self-care (01) ==
LOC: ANHLAB 10:10
PROVIDERS: PCP Nurse Practitioner Family; Visit Provider Advanced Practice Midwife
DX: Z29.13 Encounter for prophylactic Rho(D) immune globulin (principal); O36.0190 Maternal care for anti-D [Rh] antibodies, unspecified trimester, not applicable or unspecified; Z3A.00 Weeks of gestation of pregnancy not specified
CPT/HCPCS: 36415; 85461; 86850; 86880; 86900; 86901; 90384; 96372; J2790

== ENCOUNTER 2022-06-26 00:38 | Inpatient (IN) | payer OTHER, SELFPAY ==
[2022-06-26] VITALS (160 sets, daily range): BP systolic 92–126; BP diastolic 44–95; PULSE 33–238; RESP 16–18; TEMP 36.5–36.6; O2SAT 89–100; BMI 31.6
[2022-06-26 02:23] LABS: Basophils Percent Auto 0.3 % (0.2-1.2); Eosinophils Absolute Auto 0.3 K/mm3 (0-0.3); Eosinophils Percent Auto 2.1 % (0-4.4); Hematocrit 36.5 % (37.0-47.0); Hemoglobin 11.8 g/dL (12.0-15.0); Immature Granulocyte Percent A 0.8 % (0-0.5); Lymphocytes Absolute Auto 4.15 K/mm3 (0.9-3.2); Lymphocytes Percent Auto 34.3 % (18.3-44.2); Mean Corpuscular HGB Conc 32.3 g/dl (32-36); Mean Corpuscular Hemoglobin 28.1 pg (26-34); Mean Corpuscular Volume 86.9 fl (80-100); Mean Platelet Volume 11.7 fl (7.4-10.4); Monocytes Absolute Auto 0.9 K/mm3 (0.1-0.6); Monocytes Percent Auto 7.4 % (2.6-8.5); Neutrophils Absolute Auto 6.7 K/mm3 (1.3-6.7); Neutrophils Percent Auto 55.1 % (45.5-73.1); Platelet Count Result 181 k/mm3 (150-375); Red Cell Distribution Width 15.2 % (11.5-14.5); White Blood Count 12.1 K/mm3 (4.5-10.0)
[2022-06-26] MEDS: LACTATED RINGERS 1,000 ML 999 ML IV CONT (03:54)
--- NOTE | 2022-06-26 04:11 | WPDANESEPP ---
Anes - Eval Pre Procedure Procedure: Labor epidural Date/Time: 06/26/22 04:11 Surgeon: Guanako Preop Diagnosis: Abd pain with contractions Pre Op Diagnosis: SROM Patient Data Age: 31 Gender: F Height: 1.68 m Weight: 89 kg Last Vital Signs Pulse 65 06/26/22 04:00 BP 119/73 06/26/22 04:00 O2 Del Method Room Air 06/26/22 01:24 Allergies Allergy/AdvReac Type Severity Reaction Status Date / Time No Known Allergies Allergy Verified 07/17/20 19:07 Home Medications Medication Instructions Recorded Confirmed Type cholecalciferol (vitamin D3) 25 1,000 unit PO DAILY 01/09/21 02/16/21 History mcg (1,000 unit) capsule vit no.95-ferrous 1 tablet PO DAILY 01/09/21 02/16/21 History fumarate 28 mg-folic acid 800 mcg tablet () escitalopram oxalate 5 mg tablet 5 mg PO DAILY 06/06/22 06/06/22 History (Lexapro) Laboratory Tests 06/26/22 06/26/22 06/26/22 01:37 01:37 01:37 WBC 12.1 K/mm3 H K/mm3 (4.5-10.0) RBC 4.20 M/mm3 M/mm3 (4.2-5.4) Hgb 11.8 g/dL L g/dL (12.0-15.0) Hct 36.5 % L % (37.0-47.0) MCV 86.9 fl fl (80-100) MCH 28.1 pg pg (26-34) MCHC 32.3 g/dl g/dl (32-36) RDW 15.2 % H % (11.5-14.5) Plt Count 181 k/mm3 k/mm3 (150-375) MPV 11.7 fl H fl (7.4-10.4) Immature Gran % (Auto) 0.8 % H % (0-0.5) Neut % (Auto) 55.1 % % (45.5-73.1) Lymph % (Auto) 34.3 % % (18.3-44.2) [place] % (Auto) 7.4 % % (2.6-8.5) Eos % (Auto) 2.1 % % (0-4.4) Baso % (Auto) 0.3 % % (0.2-1.2) Lymph # (Auto) 4.15 K/mm3 H K/mm3 (0.9-3.2) [place] # (Auto) 0.9 K/mm3 H K/mm3 (0.1-0.6) Eos # (Auto) 0.3 K/mm3 K/mm3 (0-0.3) Baso # (Auto) 0.0 K/mm3 K/mm3 (0.0-0.1) Abs Immat Gran (auto) 0.10 K/mm3 H K/mm3 (0.00-0.031) Absolute Neuts (auto) 6.7 K/mm3 K/mm3 (1.3-6.7) Absolute Nucleated RBC 0.0 K/mm3 K/mm3 (0.0-0.012) Nucleated RBC % 0.0 % % (0.0-0.2) RPR Pending Blood Type AB Negative Antibody Screen Pending Patient hx anesthesia problems: none Family hx anesthesia problems: none Results Review: All pre-operative results and documents have been reviewed as part of the pre-operative evaluation. [facility] Past Medical History Medical History Anxiety and depression Healthy female adult Overweight (BMI 25.0-29.9) Psoriasiform dermatitis Surgical History Surgical History No history of previous surgery Family History Family History Other No pertinent family history Social History Social History Smoking status: Never smoker Second hand tobacco smoke exposure: No Substance use: never Lack of Transportation: No Lack of Food: Never True Current Housing: I Have Housing Concerned About Future Housing: No Difficulty Paying Gas/Electric Bills: No Difficulty Paying for Meds: No Currently Unemployed: No Education: Bachelor's Degree Difficulty w/ Childcare or Family Care: No Gender identity (if verbalized by the patient): Female Spiritual care concerns: No Exam Day of Procedure 06/26/22 04:11 Patient weight: overweight Airway: Mallampati scale class II
[2022-06-26] MEDS: LACTATED RINGERS 1,000 ML 125 ML IV CONT (07:24)
[2022-06-26] MEDS: OXYTOCIN 30 UNITS/NS 500 ML 30 UNITS/500 ML BAG IV CONT (07:25)
--- NOTE | 2022-06-26 07:30 | WPDOBADMIT ---
Obstetrics - Admit Note Admission Note: record reviewed. No pertinent additions to the history and/or any subsequent changes in the physical findings that are not consistent with the expected course of the were found. Additions to the history and/or subsequent changes in the physical findings follow. None.Here in labor with SROM. Now 6 cm. FHTs reactive. Continue expectant mgmt.
[2022-06-26 10:00] LABS: Rapid Plasma Reagin Non-Reactive (NonReactive)
[2022-06-26] MEDS: ONDANSETRON INJ 4 MG/2 ML VIAL IV PUSH (10:33)
--- NOTE | 2022-06-26 11:55 | PM.OBPRVD ---
OB - Delivery Note Procedure Delivery date: 06/26/22 Procedure: manual rotation of vertex Intrapartal Events: Arrest of Descent Induction method: None Delivery augmentation: Pitocin Delivery monitor: External FHT and External Uterine Route of delivery: Laceration Description: Perineal - 2nd Degree Delivery repair: vicryl (3-0 ) Specimen: No Quantitative Blood Loss (ml): 100 Anesthesia type: Epidural Disposition: Floor Narrative: Called by RN to evaluate after 2hours of pushing. Suspected occiput posterior positioning. On my arrival the heart tones were category 1 and the is at a -1 to 0 station with significant caput. Palpation of the vertex reveals the to be in the straight occiput posterior position. The was manually rotated by pushing on the suture line anteriorly and holding and position until the next contraction which the patient was able to push the down into the occiput anterior position. Over the next contraction, the delivered the head followed quickly by the body. [place] Baby Date of : 06/26/22 Weeks of gestation at delivery: 38 gender: Male Weight (pounds): 7 Weight (ounces): 9 presentation: vertex position: Right Occiput Anterior Placenta delivery description: Spontaneous Cord Vessel Description: 3 Vessels score one minute: 7 score five minutes: 9
--- NOTE | 2022-06-26 11:59 | PM.OBDSVD ---
DS: Admitting Diagnosis Discharge Date 06/27/22 Admitting Diagnosis Intrauterine at 38 and 4 7th weeks spontaneous rupture of membranes and labor DS: Discharge Diagnosis Discharge Diagnosis (1) (normal spontaneous vaginal delivery): Code(s): O80 - Encounter for full-term uncomplicated delivery Status: Acute OB - DS: Summary OB Procedures : Ultrasound OB Procedures Intrapartum: Spontaneous Vag Delivery and Other ( manual rotation of vertex from occiput posterior to occiput anterior) OB Procedures: : None Peripartum Data Delivery Method: Natural Vaginal Laceration Description: Perineal - 2nd Degree complications: none Status at Discharge Functional status at discharge: independent ambulation Overall status at discharge: patient is progressing back to baseline Time Spent with Patient Time attestation: Total time spent providing and/or coordinating discharge services: DS: Data Data Completed and Pending Labs on day of discharge: Labs from last 24 hours 06/26/22 06/26/22 06/26/22 01:37 01:37 01:37 WBC 12.1 H RBC 4.20 Hgb 11.8 L Hct 36.5 L MCV 86.9 MCH 28.1 MCHC 32.3 RDW 15.2 H Plt Count 181 MPV 11.7 H Immature Gran % (Auto) 0.8 H Neut % (Auto) 55.1 Lymph % (Auto) 34.3 [place] % (Auto) 7.4 Eos % (Auto) 2.1 Baso % (Auto) 0.3 Lymph # (Auto) 4.15 H [place] # (Auto) 0.9 H Eos # (Auto) 0.3 Baso # (Auto) 0.0 Abs Immat Gran (auto) 0.10 H Absolute Neuts (auto) 6.7 Absolute Nucleated RBC 0.0 Nucleated RBC % 0.0 RPR Non-reactive Blood Type AB Negative Antibody Screen Negative Discharge Plan Discharge Attending physician on discharge: Caitlin Mujica Discharging Clinician: Paige Love Anticipated Discharge Date/Time: 06/28/22 12:00 Patient Disposition: Home, Self-Care Activity: may shower, may drive after 2 weeks and pelvic rest Diet: regular Discharge Instructions: Education: Mom and Baby Guide Given to: Mother Follow-Up: Call your delivering provider's office for an appointment to be seen in: 6 Weeks Mom and baby should come to the [facility] for the follow-up appointment. Appointment Date/Time: June 28, 2022 at 8:00 am What to expect at your follow-up visit: Blood Pressure Check Physical Assessment Call [phone] if you are unable to keep your appointment time. BREAST CARE: * Wear a snug supportive bra. * For engorgement discomfort: Breast Feeding: * Apply warm moist washcloths * Express milk as needed to relieve engorgement * Wear loose clothing Bottle Feeding: * May apply ice packs * For sore nipples: * Identify correct latch-on * Apply warm moist washcloths before and after nursing * Air dry nipples after nursing * May apply Lansinoh cream to nipples EPISIOTOMY/PERINEAL CARE: * Until bleeding stops, use your tiffany bottle after urinating * Change your pad frequently throughout the day * You may take sitz baths several times a day (fill your bathtub with warm water and soak for 20 minutes.) Do NOT bathe in the water * No tub baths until seen by your physician - You may shower ACTIVITY: * Rest as much as possible. * Do not exercise or lift anything heavier than your baby (such as laundry or other children.) * Avoid stairs or driving as much as possible. * Do not put anything into the vagina. No douching, tampons, or sexual activity until seen by physician. NOTIFY PHYSICIAN IF YOU HAVE ANY QUESTIONS OR IF ANY OF THE FOLLOWING SYMPTOMS OCCUR: * If your episiotomy or incision becomes red, swollen, or more painful than what you have experienced in the hospital. * If your vaginal bleeding becomes foul smelling. * If your vaginal bleeding becomes more heavy than a period or if your bleeding changes from pink to bright red. However
[2022-06-26] MEDS: OXYTOCIN 30 UNITS/NS 500 ML 30 UNITS/500 ML BAG 125 UNITS IV CONT (12:30)
--- NOTE | 2022-06-26 14:30 | OBPPTRN ---
Patient transferred to post room # 280 via wheelchair accompanied by spouse and . PT introductions made and plan of care discussed per post , pain management, breast bottle feeding, daily care activities. PT and Support person both recipients of such instructions. Pt received such instructions this shift per one to one discussion, mom baby care guide and demonstrations. Oriented to unit, room, information board, rooming in, admission packet and security measures. Patient verbalizes understanding.
--- NOTE | 2022-06-26 16:00 | PC.NURSE ---
[id number] Introductions were made, then consulted with patient to assess needs related to . Mother led the conversation with her?plans to feed?her infant and the?experience so far. Mothers left breast has a bruise on the areola and mother voiced her nipples are already getting sore and she is interested in combination feeding with formula. Conversation flowed easily while discussing feeding options. Resources provided for inpatient and outpatient services with mom/baby guide. Mother voiced understanding of information and will call if there is a request for assistance. [id number] Consulted with patient to assess needs related to per mothers request. Mother works well with her infant with encouragement. Encouraged understanding of the benefits of skin to skin (demonstrating unwrapping and placing upright on her chest), stimulating with massage touch, changing positions to encourage wakefulness, how to watch for early feeding cues, responsive feeding, feeding on demand (aiming for 8-12 times in 24 hours, about every 2-3 hours), milk production, building/maintaining a milk supply, duration of feeding, signs of adequate intake/output and how to record on the feeding sheet. Reviewed positioning and ear, shoulder, hip alignment, supporting the breast to facilitate a deep latch, asymmetrical latch (off-center), leading with the chin with a big, open, wide gape and body close to mother. latched optimally to the right breast in cross cradle position. Education given to mother of how to visualize suck/swallow ratios and listen for drinking at the breast. was able to maintain latch without discomfort to mother. Nipple care reviewed with optimal latch and good positioning. Reminding mother of comfort measures of healing with a warm and wet washcloth to rinse breast, then leave open to air-dry as needed. Reviewed good handwashing when or touching the breast/nipples to prevent infection. Resources used to facilitate learning were used with the mom and baby guide. An attempt was made to latch infant to the left breast using football positioning. Mother states her nipple is already too tender and detaches . Mother desires to initiate pumping at this time. Breast pump provided due to mothers request. Instructions given on cleaning, care, usage, that there should be no pain, pumping schedule for milk production, collection, and storage of human milk. Parents are encouraged to record pumping schedule on the feeding sheet. Patient was assessed for correct placement, flange size, to pump for comfort and nipple stretching/stimulation for adequate milk production every 3 hours (8 times in 24 hours) 1-2 times at night. Mother voiced understanding of skin to skin, stimulating with massage touch, responsive feedings, hand expressed colostrum, talking to to encourage feeding, to call if there are any concerns with feeding her infant. Parents voiced understanding of information, demonstrated learning and will call if there is a request for assistance. Reported to the primary RN.
--- NOTE | 2022-06-26 16:07 | PC.NURSE ---
1550 Father of baby bottle fed 10mls of breastmilk to their .
[2022-06-26] MEDS: LANOLIN (LANSINOH) 7.5 GM CREAM 1 APPLIC TOPICAL (16:30)
[2022-06-26] MEDS: BENZOCAINE 20% AER SPR (*SP) 56 GM CAN 1 SPRAY TOPICAL (16:30)
[2022-06-26] MEDS: WITCH HAZEL 40 PADS 1 PAD TOPICAL (16:30)
[2022-06-26] MEDS: ACETAMINOPHEN 325 MG TABLET 650 MG PO ×2 (16:31→22:40)
[2022-06-26] MEDS: IBUPROFEN 600 MG TABLET PO ×2 (16:32→22:40)
[2022-06-26] MEDS: DOCUSATE SODIUM 100 MG CAPSULE PO (16:32)
[2022-06-26] MEDS: ESCITALOPRAM OXALATE 10 MG TABLET PO (20:32)
[2022-06-27 00:57] VITALS: BP 107/63; PULSE 62; RESP 16; TEMP 36.8; O2SAT 98
[2022-06-27 03:46] VITALS: BP 126/72; PULSE 65; RESP 18; TEMP 36.6; O2SAT 99
[2022-06-27] MEDS: IBUPROFEN 600 MG TABLET PO ×2 (04:57→11:12)
[2022-06-27] MEDS: ACETAMINOPHEN 325 MG TABLET 650 MG PO ×2 (04:58→11:13)
[2022-06-27 05:22] LABS: Hematocrit 33.6 % (37.0-47.0); Hemoglobin 10.6 g/dL (12.0-15.0)
[2022-06-27 07:15] VITALS: BP 109/60; PULSE 61; RESP 16; TEMP 36.5; O2SAT 97
--- NOTE | 2022-06-27 07:38 | P.PNOB_ITS ---
OB - PN: Subj Subjective Date/time seen: 06/27/22 07:20 Patient comments: no complaints and pain well controlled baby status: doing well [place] feeding status: other (exclusively pumping) OB - PN: Obj Data Labs 06/27/22 05:03 Labs: Laboratory Results - last 24 hr 06/26/22 06/27/22 01:37 05:03 Hgb 10.6 L Hct 33.6 L RPR Non-reactive OB - PN A/P Plan day: 1 Plan: discharge home Time Spent With Patient Time: Total time spent is greater than 50% in coordination of care (as documented) at patient's floor/unit and/or counseling patient: Review of Systems Review of Systems: All systems reviewed & are unremarkable except as noted in HPI and below Exam 2 Narrative: Alert and oriented. Mood is pleasant and cooperative. Urinating without difficulty. Denies passing any large clots. Perineum with minimal edema. Fundus firm and below umbilicus. Const: General: cooperative, healthy appearing, no acute distress and alert Orientation/consciousness: patient oriented x3 Limitations: no limitations Resp: Effort & Inspection: normal respiratory effort Auscultation: clear to auscultation bilaterally Cardio: Rate: regular rate GI: Inspection: normal to inspection Neuro: General: patient oriented x3 Extrem: General: normal to inspection Psych: Appearance: grossly normal Mental Status: mental status grossly normal Affect: normal affect Thought process: Normal thought process present
--- NOTE | 2022-06-27 07:46 | WPDANLDPN2 ---
Anes-Prog Note L&D Date/Time: 06/27/22 07:46 Comfortable throughout: labor and delivery Neuraxial method: epidural Epidural/Spinal procedure site: clean & non-tender Neuro status: Neuro function grossly intact. Cardiovascular status: normal Respiratory status: normal Airway patency: baseline Mental status: baseline Post-Op hydration status: normal Vital Signs: Last Vital Signs Temp 36.6 C 06/27/22 03:46 Pulse 65 06/27/22 03:46 Resp 18 06/27/22 03:46 BP 126/72 06/27/22 03:46 Pulse Ox 99 06/27/22 03:46 O2 Del Method Room Air 06/27/22 00:57 Pain score (VAS): 3 I/O: Intake & Output 06/26/22 06/26/22 06/27/22 15:59 23:59 07:59 Intake Total 500 Output Total 625 Balance -625 500 Post-procedural complaints: none Patient feedback: Patient satisfied with anesthetic care.
[2022-06-27] MEDS: DOCUSATE SODIUM 100 MG CAPSULE PO (07:56)
[2022-06-27] MEDS: MULTIVIT/MIN/PREN/FOL AC/IRON TABLET 1 TAB PO (07:56)
--- NOTE | 2022-06-27 07:57 | WPDOBADMIT ---
Obstetrics - Admit Note Admission Note: record reviewed. No pertinent additions to the history and/or any subsequent changes in the physical findings that are not consistent with the expected course of the were found. Additions to the history and/or subsequent changes in the physical findings follow. None.
[2022-06-27 08:00] VITALS: PULSE 61; RESP 16; O2SAT 97
--- NOTE | 2022-06-27 08:34 | PC.NURSE ---
On 06/27/22, the student, Peace Madsen, provided care and completed [facility] documentation on this patient. I have reviewed the student's documentation and agree with the findings.
--- NOTE | 2022-06-27 14:19 | PC.NURSE ---
[id number] Consulted with father to check on mother's decision on feeding their baby. Dad confirmed that mother did continue to pump her breast for stimulating milk production and bottle fed formula last night. Mother is in the shower. Reviewed consistently pumping 8 times in 24 hours 1-2 times at night. Offered to return to answer any concerns or questions mother might have. Father of voiced understanding and will call if needed.
== END 2022-06-27 14:35 | disposition home or self-care (01) | DRG 807 ==
LOC: ANHLDR 12:01 → ANHOB2 06-27 10:10 → ANHLDR 06-28 09:59
PROVIDERS: Admitting Provider Obstetrics & Gynecology Gynecology; PCP Nurse Practitioner Family; Visit Provider Advanced Practice Midwife
DX: O99.344 Other mental disorders complicating childbirth (principal); Z37.0 Single live birth; Z3A.38 38 weeks gestation of pregnancy; F41.8 Other specified anxiety disorders; O70.1 Second degree perineal laceration during delivery; O64.0XX0 Obstructed labor due to incomplete rotation of fetal head, not applicable or unspecified
CPT/HCPCS: 36415; 84112; 85014; 85018; 85025; 86592; 86850; 86900; 86901; A9270; J2405; J2590; J2795; J7120